=== PATIENT | female | born 1980 | race American Indian/Alaskan Native ===

== ENCOUNTER 2021-09-01 19:58 | Inpatient (IN) | payer OTHER ==
[2021-09-01] MEDS ORDERED: 50% Dextrose in Water 50 ML Syringe IVPUSH PRN (20:33)
[2021-09-01] MEDS ORDERED: Glucagon,Human Recombinant 1 MG Vial IM PRN (20:33)
[2021-09-01] MEDS ORDERED: Temazepam 15 MG Cap PO PRN (20:33)
[2021-09-01] MEDS ORDERED: oxyCODONE 5 MG Tab PO PRN (20:33)
[2021-09-02] MEDS: Acetaminophen 325 MG Tab PO PRN ×2 (08:28→19:52)
[2021-09-02] MEDS: metFORMIN 500 MG Tab PO SCH ×2 (08:28→17:53)
[2021-09-02] MEDS: Enoxaparin 40 MG/0.4 ML Syringe SUBCUT SCH (08:28)
[2021-09-02] MEDS: Insulin Glarg,Human.Rec.Analog 100 Unit/ML SUBCUT SCH (19:55)
[2021-09-03] MEDS: metFORMIN 500 MG Tab PO SCH ×2 (08:02→19:31)
[2021-09-03] MEDS: Enoxaparin 40 MG/0.4 ML Syringe SUBCUT SCH (08:03)
[2021-09-03] MEDS: Acetaminophen 325 MG Tab PO PRN ×2 (08:45→19:39)
[2021-09-03] MEDS: Insulin Glarg,Human.Rec.Analog 100 Unit/ML SUBCUT SCH (19:32)
[2021-09-04] MEDS: metFORMIN 500 MG Tab PO SCH ×2 (07:39→18:49)
[2021-09-04] MEDS: Enoxaparin 40 MG/0.4 ML Syringe SUBCUT SCH (08:00)
[2021-09-04] MEDS: Acetaminophen 325 MG Tab PO PRN ×2 (08:15→19:20)
[2021-09-04] MEDS: Insulin Glarg,Human.Rec.Analog 100 Unit/ML SUBCUT SCH (19:49)
[2021-09-05] MEDS: metFORMIN 500 MG Tab PO SCH ×2 (07:45→17:26)
[2021-09-05] MEDS: Enoxaparin 40 MG/0.4 ML Syringe SUBCUT SCH (08:26)
[2021-09-05] MEDS: Acetaminophen 325 MG Tab PO PRN (19:24)
[2021-09-05] MEDS: Insulin Glarg,Human.Rec.Analog 100 Unit/ML SUBCUT SCH (19:45)
[2021-09-05] MEDS ORDERED: Enoxaparin 40 MG/0.4 ML Syringe SUBCUT SCH (20:00)
[2021-09-06] MEDS: Enoxaparin 40 MG/0.4 ML Syringe SUBCUT SCH (07:36)
[2021-09-06] MEDS: metFORMIN 500 MG Tab PO SCH ×2 (07:36→17:11)
[2021-09-06] MEDS: Insulin Glarg,Human.Rec.Analog 100 Unit/ML SUBCUT SCH (19:35)
[2021-09-06] MEDS: Acetaminophen 325 MG Tab PO PRN (23:48)
[2021-09-07] MEDS: metFORMIN 500 MG Tab PO SCH ×2 (07:56→17:24)
[2021-09-07] MEDS: Enoxaparin 40 MG/0.4 ML Syringe SUBCUT SCH (07:56)
[2021-09-07] MEDS: Acetaminophen 325 MG Tab PO PRN (09:07)
[2021-09-07] MEDS: Insulin Glarg,Human.Rec.Analog 100 Unit/ML SUBCUT SCH (19:40)
[2021-09-08] MEDS: Enoxaparin 40 MG/0.4 ML Syringe SUBCUT SCH (08:07)
[2021-09-08] MEDS: Acetaminophen 325 MG Tab PO PRN (08:07)
[2021-09-08] MEDS: metFORMIN 500 MG Tab PO SCH ×2 (08:08→17:04)
[2021-09-08] MEDS: Insulin Glarg,Human.Rec.Analog 100 Unit/ML SUBCUT SCH (21:25)
[2021-09-09] MEDS: Enoxaparin 40 MG/0.4 ML Syringe SUBCUT SCH (07:37)
[2021-09-09] MEDS: metFORMIN 500 MG Tab PO SCH ×2 (07:37→17:38)
[2021-09-09] MEDS: Acetaminophen 325 MG Tab PO PRN (07:38)
[2021-09-09] MEDS: Insulin Glarg,Human.Rec.Analog 100 Unit/ML SUBCUT SCH (21:37)
[2021-09-10] MEDS: Enoxaparin 40 MG/0.4 ML Syringe SUBCUT SCH (08:05)
[2021-09-10] MEDS: metFORMIN 500 MG Tab PO SCH ×2 (08:05→17:02)
[2021-09-10] MEDS: Insulin Glarg,Human.Rec.Analog 100 Unit/ML SUBCUT SCH (20:15)
[2021-09-11] MEDS: Enoxaparin 40 MG/0.4 ML Syringe SUBCUT SCH (07:44)
[2021-09-11] MEDS: metFORMIN 500 MG Tab PO SCH ×2 (07:44→17:31)
[2021-09-11] MEDS: Acetaminophen 325 MG Tab PO PRN (19:46)
[2021-09-11] MEDS: Insulin Glarg,Human.Rec.Analog 100 Unit/ML SUBCUT SCH (19:53)
[2021-09-12] MEDS: Enoxaparin 40 MG/0.4 ML Syringe SUBCUT SCH (07:27)
[2021-09-12] MEDS: metFORMIN 500 MG Tab PO SCH ×2 (07:27→18:10)
[2021-09-12] MEDS: Acetaminophen 325 MG Tab PO PRN (20:30)
[2021-09-12] MEDS: Insulin Glarg,Human.Rec.Analog 100 Unit/ML SUBCUT SCH (20:31)
[2021-09-13] MEDS: metFORMIN 500 MG Tab PO SCH ×2 (07:47→18:37)
[2021-09-13] MEDS: Enoxaparin 40 MG/0.4 ML Syringe SUBCUT SCH (07:47)
[2021-09-13] MEDS: Insulin Glarg,Human.Rec.Analog 100 Unit/ML SUBCUT SCH (19:35)
[2021-09-14] MEDS: metFORMIN 500 MG Tab PO SCH ×2 (09:52→17:10)
[2021-09-14] MEDS: Enoxaparin 40 MG/0.4 ML Syringe SUBCUT SCH (09:53)
[2021-09-14] MEDS: Insulin Glarg,Human.Rec.Analog 100 Unit/ML SUBCUT SCH (20:21)
[2021-09-15] MEDS: Enoxaparin 40 MG/0.4 ML Syringe SUBCUT SCH (07:40)
[2021-09-15] MEDS: metFORMIN 500 MG Tab PO SCH ×2 (07:40→17:17)
[2021-09-15] MEDS: Insulin Glarg,Human.Rec.Analog 100 Unit/ML SUBCUT SCH (20:36)
[2021-09-16] MEDS: Enoxaparin 40 MG/0.4 ML Syringe SUBCUT SCH (07:41)
[2021-09-16] MEDS: metFORMIN 500 MG Tab PO SCH ×2 (07:41→17:20)
[2021-09-16] MEDS: Insulin Glarg,Human.Rec.Analog 100 Unit/ML SUBCUT SCH (20:54)
[2021-09-16] MEDS: Acetaminophen 325 MG Tab PO PRN (23:59)
[2021-09-17] MEDS: Enoxaparin 40 MG/0.4 ML Syringe SUBCUT SCH (07:48)
[2021-09-17] MEDS: metFORMIN 500 MG Tab PO SCH ×2 (07:48→17:25)
[2021-09-17] MEDS: Insulin Glarg,Human.Rec.Analog 100 Unit/ML SUBCUT SCH (20:19)
[2021-09-18] MEDS: metFORMIN 500 MG Tab PO SCH ×2 (07:45→17:04)
[2021-09-18] MEDS: Enoxaparin 40 MG/0.4 ML Syringe SUBCUT SCH (07:47)
[2021-09-18] MEDS: Insulin Glarg,Human.Rec.Analog 100 Unit/ML SUBCUT SCH (19:47)
[2021-09-19] MEDS: metFORMIN 500 MG Tab PO SCH ×2 (08:39→17:26)
[2021-09-19] MEDS: Enoxaparin 40 MG/0.4 ML Syringe SUBCUT SCH (08:39)
[2021-09-19] MEDS: Insulin Glarg,Human.Rec.Analog 100 Unit/ML SUBCUT SCH (19:39)
[2021-09-20] MEDS: Enoxaparin 40 MG/0.4 ML Syringe SUBCUT SCH (07:58)
[2021-09-20] MEDS: metFORMIN 500 MG Tab PO SCH ×2 (07:58→17:30)
[2021-09-20] MEDS: Insulin Glarg,Human.Rec.Analog 100 Unit/ML SUBCUT SCH (19:38)
[2021-09-21] MEDS: Acetaminophen 325 MG Tab PO PRN (00:34)
[2021-09-21] MEDS: metFORMIN 500 MG Tab PO SCH ×2 (07:59→17:19)
[2021-09-21] MEDS: Enoxaparin 40 MG/0.4 ML Syringe SUBCUT SCH (07:59)
[2021-09-21] MEDS: Insulin Glarg,Human.Rec.Analog 100 Unit/ML SUBCUT SCH (20:26)
[2021-09-22] MEDS: Enoxaparin 40 MG/0.4 ML Syringe SUBCUT SCH (07:28)
[2021-09-22] MEDS: metFORMIN 500 MG Tab PO SCH ×2 (07:29→17:04)
[2021-09-22] MEDS: Acetaminophen 325 MG Tab PO PRN (19:49)
[2021-09-22] MEDS: Insulin Glarg,Human.Rec.Analog 100 Unit/ML SUBCUT SCH (20:33)
[2021-09-23] MEDS: metFORMIN 500 MG Tab PO SCH ×2 (07:20→17:14)
[2021-09-23] MEDS: Enoxaparin 40 MG/0.4 ML Syringe SUBCUT SCH (07:20)
[2021-09-23] MEDS: Insulin Glarg,Human.Rec.Analog 100 Unit/ML SUBCUT SCH (20:16)
[2021-09-24] MEDS: metFORMIN 500 MG Tab PO SCH ×2 (07:29→17:07)
[2021-09-24] MEDS: Enoxaparin 40 MG/0.4 ML Syringe SUBCUT SCH (07:30)
[2021-09-24] MEDS: Insulin Glarg,Human.Rec.Analog 100 Unit/ML SUBCUT SCH (20:26)
[2021-09-25] MEDS: Enoxaparin 40 MG/0.4 ML Syringe SUBCUT SCH (07:47)
[2021-09-25] MEDS: metFORMIN 500 MG Tab PO SCH ×2 (07:51→17:17)
[2021-09-25] MEDS: Insulin Glarg,Human.Rec.Analog 100 Unit/ML SUBCUT SCH (19:55)
[2021-09-26] MEDS: Enoxaparin 40 MG/0.4 ML Syringe SUBCUT SCH (07:59)
[2021-09-26] MEDS: metFORMIN 500 MG Tab PO SCH ×2 (08:00→16:30)
[2021-09-26] MEDS: Insulin Glarg,Human.Rec.Analog 100 Unit/ML SUBCUT SCH (19:48)
[2021-09-27] MEDS: Enoxaparin 40 MG/0.4 ML Syringe SUBCUT SCH (07:38)
[2021-09-27] MEDS: metFORMIN 500 MG Tab PO SCH ×2 (07:39→17:36)
[2021-09-27] MEDS: Acetaminophen 325 MG Tab PO PRN ×2 (07:39→22:40)
[2021-09-27] MEDS: Insulin Glarg,Human.Rec.Analog 100 Unit/ML SUBCUT SCH (19:51)
[2021-09-28] MEDS: metFORMIN 500 MG Tab PO SCH ×2 (07:35→17:20)
[2021-09-28] MEDS: Enoxaparin 40 MG/0.4 ML Syringe SUBCUT SCH (07:35)
[2021-09-28] MEDS: Insulin Glarg,Human.Rec.Analog 100 Unit/ML SUBCUT SCH (20:04)
[2021-09-29] MEDS: metFORMIN 500 MG Tab PO SCH ×2 (08:04→17:02)
[2021-09-29] MEDS: Enoxaparin 40 MG/0.4 ML Syringe SUBCUT SCH (08:04)
[2021-09-29] MEDS: Insulin Glarg,Human.Rec.Analog 100 Unit/ML SUBCUT SCH (20:12)
[2021-09-30] MEDS: metFORMIN 500 MG Tab PO SCH ×2 (07:55→17:30)
[2021-09-30] MEDS: Enoxaparin 40 MG/0.4 ML Syringe SUBCUT SCH (07:55)
[2021-09-30] MEDS: Insulin Glarg,Human.Rec.Analog 100 Unit/ML SUBCUT SCH (21:45)
[2021-10-01] MEDS: Enoxaparin 40 MG/0.4 ML Syringe SUBCUT SCH (08:04)
[2021-10-01] MEDS: metFORMIN 500 MG Tab PO SCH ×2 (08:59→17:36)
[2021-10-01] MEDS: Acetaminophen 325 MG Tab PO PRN (13:03)
[2021-10-01] MEDS: Insulin Glarg,Human.Rec.Analog 100 Unit/ML SUBCUT SCH (20:35)
[2021-10-02] MEDS: Enoxaparin 40 MG/0.4 ML Syringe SUBCUT SCH (08:23)
[2021-10-02] MEDS: metFORMIN 500 MG Tab PO SCH ×2 (08:23→17:36)
[2021-10-02] MEDS: Insulin Glarg,Human.Rec.Analog 100 Unit/ML SUBCUT SCH (19:57)
[2021-10-03] MEDS: Enoxaparin 40 MG/0.4 ML Syringe SUBCUT SCH (08:29)
[2021-10-03] MEDS: metFORMIN 500 MG Tab PO SCH (08:29)
[2021-10-03 11:46] VITALS: BP 121/66; PULSE 55
== END 2021-10-03 13:25 | disposition home health service (06) | DRG 560 ==
LOC: CC.MS 19:58 → UNDOADMIN 19:58 → CC.MS 20:05
PROVIDERS: ADMIT Nurse Practitioner Family; ATTEND Family Medicine
DX: S82.892D Other fracture of left lower leg, subsequent encounter for closed fracture with routine healing (principal); Z68.44 Body mass index [BMI] 60.0-69.9, adult; H54.7 Unspecified visual loss; M19.90 Unspecified osteoarthritis, unspecified site; E66.9 Obesity, unspecified; E11.9 Type 2 diabetes mellitus without complications; R53.1 Weakness; Z79.4 Long term (current) use of insulin; Z90.49 Acquired absence of other specified parts of digestive tract
CPT/HCPCS: 82947; 97110-GP; 97161-GP; 97530-GP; 99306; 99307; 99315; A9270-GY; J1650; J1815-GY